=== PATIENT | female | born 1975 | race Caucasian/White ===

== ENCOUNTER → 2017-01-20 | Outpatient (CLI) | payer BC ==
[~2017-01-20] MED LIST: BACTRIM DS TABL1 TA1 PO; CELEXA20 MG PO; CLARINEX-D 11 BOTTLE PO; KEFLEX500 MG PO; ZYRTEC-D T1 TAB.SR1 PO
--- NOTE | ~2017-01-20 | US140 ---
[facility] A Service [facility] RADIOLOGY TEXT RESULTS PATIENT: HARRIET PAZ LOCATION: SNIV : 73 UNIT #: [id number] AGE: [address]: Smooth Robertson MD SEX: F ORDER DR: [id number] [place] [id number] O MR#: [id number] Acc #: [id number] NAME: HARRIET PAZ : 1975 SEX: F STUDY DATE/TIME: 01/20/2017 14:43 UNIT: SNIV ROOM: STUDY DESCRIPTION: [facility] [place] [facility] Attending Physician: Smooth Robertson M.D. Referring Physician: Smooth Robertson M.D. Ordering Physician: Smooth Robertson M.D. Primary Care Physician: Khadar Centeno M.D. MEDICAL IMAGING REPORT This report is preliminary unless electronic signature is present. EXAM Left lower extremity venous duplex, 01/20/2017 HISTORY Left lower extremity pain in left calf for 1 year, evaluate for deep vein thrombosis. TECHNIQUE Venous ultrasound examination of the left lower extremity was performed using grayscale, spectral Doppler and color flow Doppler imaging. FINDINGS The examination is negative. There is no evidence of left lower extremity deep venous thrombus from the groin to the lower calf. Visualized greater saphenous vein is also patent. IMPRESSION Negative examination. No evidence of left lower extremity deep venous thrombosis. Dictated by... Jez Mayfield M.D. THIS IS AN ELECTRONICALLY VERIFIED REPORT Jez Mayfield M.D. at 01/21/2017 7:28 AM KRT/randall TD: 01/20/2017 20:01 JOB #: [id number] MEDICAL IMAGING REPORT [facility] A Service [facility] RADIOLOGY TEXT RESULTS PATIENT: HARRIET PAZ LOCATION: SNIV : 73 UNIT #: [id number] AGE: [address]: Smooth Robertson MD SEX: F ORDER DR: Page 1 of 1
== END | disposition home or self-care (01) ==
LOC: SNIV 15:15
DX: M79.662 Pain in left lower leg (principal)
CPT/HCPCS: 93971